=== PATIENT | female | born 1955 | race Caucasian/White ===

== ENCOUNTER 2017-08-18 10:54 | Observation (INO) | payer OTHER ==
[~2017-08-18] VITALS: Ht 170.2 cm; Wt 57.5 kg
[2017-08-18] VITALS (7 sets, daily range): BP systolic 127–168; BP diastolic 33–99; PULSE 64–78; RESP 16–21; TEMP 98.4–98.6; O2SAT 94–100
--- NOTE | 2017-08-18 11:20 | PD ---
HPI Chief Complaint: Chest Pain Time Seen by Provider: 11:17 Travel History International Travel<30 days: No Contact w/Intl Traveler<30days: No Traveled to known affect area: No History of Present Illness HPI 61-year-old female patient with history of smoking, hypertension, high cholesterol, COPD, presents to the ER today for several days history of substernal chest pains with radiation to the right shoulder, worse with movement of the arms, currently a constant 8 out of 10. She has been coughing but is nonproductive. She denies any shortness of breath. She denies other symptoms. Modifying Factors: None Associated Signs & Symptoms: Coughing, chest pain Risk Factors: COPD history PFSH Past Medical History High Cholesterol: Yes COPD: Yes Gastrointestinal Disorders: Yes (CHRONIC CONSTIPATION) Hypertension: Yes ?: Not Tubal Ligation: Yes Social History Alcohol Use: No Tobacco Use: Yes Substance Use: No Allergies-Medications (Allergen,Severity, Reaction): Coded Allergies: No Known Allergies (Unverified , 08/18/17) Reported Meds & Prescriptions Reported Meds & Active Scripts Active Reported Triamterene-Hydrochlorothiazide 37.5-25 Mg Cap 1 Cap PO DAILY Propranolol (Propranolol HCl) 20 Mg Tab 20 Mg PO Q12HR Lovastatin 40 Mg Tab 40 Mg PO DAILY Lisinopril 10 Mg Tab 10 Mg PO BID Lactulose Liq (Lactulose) 10 Gm/15 Ml Soln 30 Ml PO BID Aspirin EC (Aspirin) 81 Mg Tabdr 81 Mg PO DAILY Review of Systems Except as stated in HPI: all other systems reviewed are Neg Physical Exam Narrative GENERAL: Well-developed elderly female patient currently in mild distress. Awake and oriented 3. SKIN: Focused skin assessment warm/dry. HEAD: Atraumatic. Normocephalic. EYES: Pupils equal and round. No scleral icterus. No injection or drainage. ENT: No nasal bleeding or discharge. Mucous membranes pink and moist. NECK: Trachea midline. No JVD. Supple. CARDIOVASCULAR: Regular rate and rhythm. No murmur appreciated. RESPIRATORY: No accessory muscle use. Decreased throughout. Breath sounds equal bilaterally. GASTROINTESTINAL: Abdomen soft, non-tender, nondistended. Hepatic and splenic margins not palpable. MUSCULOSKELETAL: No obvious deformities. No clubbing. No cyanosis. No edema. NEUROLOGICAL: Awake and alert. No obvious cranial nerve deficits. Motor grossly within normal limits. Normal speech. PSYCHIATRIC: Appropriate mood and affect; insight and judgment normal. Data Data Last Documented VS Vital Signs Date Time Temp Pulse Resp B/P (MAP) Pulse Ox O2 Delivery O2 Flow Rate FiO2 08/18/17 11:37 149/80 (103) 08/18/17 11:09 74 21 100 Room Air 08/18/17 11:02 98.4 Orders Orders Electrocardiogram (08/18/17 11:17) Basic Metabolic Panel (Bmp) (08/18/17 11:17) Ckmb (Isoenzyme) Profile (08/18/17 11:17) Complete Blood Count With Diff (08/18/17 11:17) Magnesium (Mg) (08/18/17 11:17) Prothrombin Time / Inr (Pt) (08/18/17 11:17) Act Partial Throm Time (Ptt) (08/18/17 11:17) Troponin I (08/18/17 11:17) Ecg Monitoring (08/18/17 11:17) Bilateral Bp Monitoring (08/18/17 11:17) Iv Access Insert/Monitor (08/18/17 11:17) Oximetry (08/18/17 11:17) Oxygen Administration (08/18/17 11:17) Sodium Chloride 0.9% Flush (Ns Flush) (08/18/17 11:30) Chest, Pa & Lat (08/18/17 11:17) Albuterol-Ipratropium Neb (Duoneb Neb) (08/18/17 11:30) Labs Laboratory Tests Test 08/18/17 11:19 White Blood Count 9.3 TH/MM3 Red Blood Count 4.55 MIL/MM3 Hemoglobin 14.6 GM/DL Hematocrit 42.2 % Mean Corpuscular Volume 92.7 FL Mean Corpuscular Hemoglobin 32.1 PG Mean Corpuscular Hemoglobin Concent 34.6 % Red Cell Distribution Width 15.2 % Platelet Count 506 TH/MM3 Mean Platelet Volume 8.7 FL Neutrophils (%) (Auto) 63.2 % Lymphocytes (%) (Auto) 23.7 % Monocytes (%) (Auto) 9.8 % Eosinophils (%) (Auto) 2.1 % Basophils (%) (Auto) 1.2 % Neutrophils # (Auto) 5.9 TH/MM3 Lymphocytes # (Auto) 2.2 TH/MM3 Monocytes # (Auto) 0.9 TH/MM3 Eosinophils # (Auto) 0.2 TH/MM3 Basophils # (Auto) 0.1 TH/MM3 CBC Comment DIFF FINAL Differential Comment Prothrombin Time 10.8 SEC Prothromb Time International Ratio 1.1 RATIO Activated Partial Thromboplast Time 28.0 SEC Blood Urea Nitrogen 8 MG/DL Creatinine 0.66 MG/DL Random Glucose 95 MG/DL Calcium Level 8.9 MG/DL Magnesium Level 2.1 MG/DL Sodium Level 141 MEQ/L Potassium Level 3.7 MEQ/L Chloride Level 107 MEQ/L Carbon Dioxide Level 27.1 MEQ/L Anion Gap 7 MEQ/L Estimat Glomerular Filtration Rate 91 ML/MIN Total Creatine Kinase 76 U/L Troponin I LESS THAN 0.02 NG/ML MDM Medical Decision Making Medical Screen Exam Complete: Yes Emergency Medical Condition: Yes Medical Record Reviewed: Yes Interpretation(s) EKG shows NSR, no ST elevation or depression, and no arrhythmias. No significant T-wave inversions. Laboratory Tests Test 08/18/17 11:19 Platelet Count 506 TH/MM3 (150-450) Monocytes (%) (Auto) 9.8 % (0.0-8.0) Troponin I LESS THAN 0.02 NG/ML Last 24 hours Impressions Chest X-Ray 08/18/17 1117 Signed Impressions: Service Date/Time: Friday, August 18, 2017 11:48 - CONCLUSION: No acute cardiopulmonary disease identified. Julius Aguayo MD Differential Diagnosis Bronchitis versus pneumonia versus costochondritis versus ACS Narrative Course Chest x-ray was unremarkable. Lab work was otherwise unremarkable. Cardiac enzymes are negative. EKG did not show ST changes or dysrhythmias. However, considering her chest pain, my plan would be to admit her for further evaluation and a chest pain center. Diagnosis Primary Impression: Atypical chest pain Admitting Information Admitting Physician Requests: Admit Sandra Laura MD August 18, 2017 11:20
[2017-08-18] MEDS ORDERED: LOVA40TA PO (11:28)
[2017-08-18] MEDS ORDERED: ASPI81TA23 PO (11:28)
[2017-08-18] MEDS ORDERED: LACT10SO PO (11:28)
[2017-08-18] MEDS ORDERED: LISI10TA3 PO (11:28)
[2017-08-18] MEDS ORDERED: TRIA37.53 PO (11:28)
[2017-08-18] MEDS ORDERED: PROP20TA3 PO (11:28)
[2017-08-18] MEDS ORDERED: SODIUM CHLORIDE 0.9% FLUSH 10 ML FLUSH IVF PRN (11:30)
[2017-08-18] MEDS ORDERED: RESP: ALBUTEROL 2.5 MG/IPRATROPIUM 0.5 MG NEB (SCH) INH ONE (11:30)
[2017-08-18 11:31] LABS: AUTOMATED NEUTROPHIL # 5.9 TH/MM3 (1.8-7.7); BASOPHIL # 0.1 TH/MM3 (0-0.2); BASOPHIL % 1.2 % (0.0-2.0); EOSINOPHIL # 0.2 TH/MM3 (0-0.4); EOSINOPHIL % 2.1 % (0.0-4.0); HEMATOCRIT 42.2 % (35.0-46.0); HEMOGLOBIN 14.6 GM/DL (11.6-15.3); LYMPH % 23.7 % (9.0-44.0); LYMPHOCYTE # 2.2 TH/MM3 (1.0-4.8); MEAN CELL VOLUME 92.7 FL (80.0-100.0); MEAN CORPUSCULAR HEMOGLOBIN 32.1 PG (27.0-34.0); MEAN CORPUSCULAR HGB CONC 34.6 % (32.0-36.0); MEAN PLATELET VOLUME 8.7 FL (7.0-11.0); MONO % 9.8 % (0.0-8.0); MONOCYTE # 0.9 TH/MM3 (0-0.9); NEUT % 63.2 % (16.0-70.0); PLATELET COUNT 506 TH/MM3 (150-450); RED BLOOD COUNT 4.55 MIL/MM3 (4.00-5.30); RED CELL DISTRIBUTION WIDTH 15.2 % (11.6-17.2); WHITE BLOOD COUNT 9.3 TH/MM3 (4.0-11.0)
[2017-08-18 11:42] LABS: INTERNATIONAL NORMALIZED RATIO 1.1 RATIO; PROTHROMBIN TIME - PATIENT 10.8 SEC (9.8-11.6)
[2017-08-18 11:51] LABS: BICARBONATE 27.1 MEQ/L (21.0-32.0); BLOOD UREA NITROGEN 8 MG/DL (7-18); CALCIUM 8.9 MG/DL (8.5-10.1); CHLORIDE 107 MEQ/L (98-107); CREATININE 0.66 MG/DL (0.50-1.00); GLOMERULAR FILTRATION RATE 91 ML/MIN (>89); GLUCOSE,RANDOM 95 MG/DL (74-106); MAGNESIUM 2.1 MG/DL (1.5-2.5); SODIUM (NA) 141 MEQ/L (136-145)
[2017-08-18 11:52] LABS: TROPONIN I LESS THAN 0.02 NG/ML (0.02-0.05)
--- NOTE | 2017-08-18 12:39 | RADRPT ---
EXAM DATE/TIME: 08/18/2017 11:48 [facility] COMPARISON: No previous studies available for comparison. INDICATIONS : Chest pain MEDICAL HISTORY : None. SURGICAL HISTORY : None. ENCOUNTER: Initial ACUITY: 1 day PAIN SCORE: 5/10 LOCATION: chest FINDINGS: PA and lateral views of the chest. The lungs are clear. Cardiomediastinal silhouette within normal li mits. No evidence of pleural effusion or pneumothorax. CONCLUSION: No acute cardiopulmonary disease identified. Julius Aguayo MD on August 18, 2017 at 12:36 Board Certified Radiologist. This report was verified electronically.
[2017-08-18] MEDS ORDERED: NITROGLYCERIN 0.4 MG SL 25 TABS/BTL SL PRN (13:30)
[2017-08-18] MEDS ORDERED: ONDANSETRON HCL 4 MG/2 ML VIAL IV PUSH PRN (13:30)
[2017-08-18] MEDS ORDERED: ACETAMINOPHEN 500 MG CPLT PO PRN (13:30)
--- NOTE | 2017-08-18 14:31 | HHI.HP ---
HPI Primary Care Physician [facility] Chief Complaint Chest pain History of Present Illness 61 year old female with history of hypertension, hyperlipidemia, and current smoker presents to ER for further evaluation of chest pain. Initially seen at Urgent Care for what she felt was bronchitis. Instructed to go to ER for further evaluation of chest pain. Onset Saturday. Pain free on Saturday and this morning upon awaking at 0400, as she often does. Drank a cup of coffee and completed a few errands around the house before falling back to sleep. Awoken at 0900, noting chest pain had returned. Location generalized chest, stating discomfort moves from left anterior chest, right anterior chest, and substernal regions. Radiation to right midback. Severity initially 8/10, currently 6/10. Duration constant. Movements and deep breathing makes pain worse. No particular position makes pain better or worse. No known relieving factors. No recent illness last 4-6 weeks. No fever or chills. Slight nonproductive cough. Frequently requires treatment for bronchitis approx every 8-10 months. Review of Systems General: No fatigue,weakness, fever, chills, or recent illness. Has been in her general state of health. HEENT: No CROCKER, no vision changes, no nasal congestion or drainage, no dysphasia CV: Continues to have chest discomfort as stated above. History of palpitations. RESP: "Slight" nonproductive cough. No SOB or wheeze. GI: History of chronic constipation x 10 years. Last bowel movement this morning. No nausea, vomiting, bowel changes, diarrhea, pain, distention, melena , blood in the stool. No change in appetite. Endorses drinking x4 large bottles of water daily and limits her caffeine intake to 1 cup of coffee daily. : No dysuria, urgency, or frequency EXT: No lower leg edema, no paraesthesias MS: No discomfort, injury, trauma. or change in ROM. Worked in her yard all day yesterday, however does not feel as though she overworked herself. NEURO: No change in memory, difficulty with balance, LOC, motor/sensory deficits PSYCH: No anxiety or depression SKIN: No rashes, no concerning lesions Past Family Social History Allergies: Coded Allergies: No Known Allergies (Unverified , 08/18/17) Past Medical History Hypertension, hyperlipidemia, chronic constipation, esophageal dilatation, palpitations Past Surgical History None Reported Medications Reported Meds & Active Scripts Active Reported Triamterene-Hydrochlorothiazide 37.5-25 Mg Cap 1 Cap PO DAILY Propranolol (Propranolol HCl) 20 Mg Tab 20 Mg PO Q12HR Lovastatin 40 Mg Tab 40 Mg PO DAILY Lisinopril 10 Mg Tab 10 Mg PO BID Lactulose Liq (Lactulose) 10 Gm/15 Ml Soln 30 Ml PO BID Aspirin EC (Aspirin) 81 Mg Tabdr 81 Mg PO DAILY Active Ordered Medications Current Medications Medications (Trade) Dose Ordered Sig/Eden Route Start Time Stop Time Status Last Admin (NS Flush) 2 ml UNSCH PRN IVF 08/18/17 11:30 (NS Flush) 2 ml BID IV FLUSH 08/18/17 21:00 (Tylenol) 500 mg Q4H PRN PO 08/18/17 13:30 (Zofran Inj) 4 mg Q6H PRN IV PUSH 08/18/17 13:30 (Nitrostat Sl) 0.4 mg Q5M PRN SL 08/18/17 13:30 (Aspirin) 325 mg DAILY PO 08/19/17 09:00 Family History Noncontributory for early onset cardiovascular disease Social History Known hypertension and hyperlipidemia. Borderline diabetic. No known coronary artery disease. Current smoker 1 pack daily. [id number] history, started smoking age 41. Denies any alcohol or illegal drug use. Endorses sedentary lifestyle, works as a financial secretary. . Past cardiac testing No recent stress testing. Seen Dr. Olivas early in the year for palpations. EKG obtained. No stress testing completed. No follow up recommended after visit with Dr. Olivas. Reports being reassured feelings of palpations benign. Physical Exam Vital Signs Vital Signs Date Time Temp Pulse Resp B/P (MAP) Pulse Ox O2 Delivery O2 Flow Rate FiO2 08/18/17 13:21 67 16 148/90 (109) 98 Room Air 08/18/17 12:00 98 21 08/18/17 11:37 149/80 (103) 08/18/17 11:30 64 16 149/80 (103) 100 Room Air 08/18/17 11:09 74 21 152/99 (116) 100 Room Air 08/18/17 11:02 98.4 78 18 168/95 (119) 99 Physical Exam GENERAL: Alert WN, WD, NAD, pleasant, female who appears older than stated age. HEAD: NC, AT NECK: Supple, no masses, trachea midline CV: RRR, without murmur, rub, gallop, no JVD, S1-S2 no S3-S4. No carotid bruits. Left anterior chest pain reproduced with palpation. RESP: Diminished lungs throughout bilateral, no crackles, wheeze, rhonchi, symmetrical chest rise, nonlabored, able to speak in full sentences ABD: Soft, NT, ND, no masses, positive bowel tones EXT: Pulses +2x4, no dependent edema MS: Normal tone x4 extremities, nontender, no obvious deformities, full range of motion NEURO: CN II through CN XII grossly intact, motor strength 5/5 PSYCH: A+O x3, pleasant affect, appropriate speech, mood, insight and judgment SKIN: Normal turgor, normal texture, no lesions, no rashes, brisk cap refill, even hair distribution Laboratory Laboratory Tests Test 08/18/17 11:19 White Blood Count 9.3 Red Blood Count 4.55 Hemoglobin 14.6 Hematocrit 42.2 Mean Corpuscular Volume 92.7 Mean Corpuscular Hemoglobin 32.1 Mean Corpuscular Hemoglobin Concent 34.6 Red Cell Distribution Width 15.2 Platelet Count 506 Mean Platelet Volume 8.7 Neutrophils (%) (Auto) 63.2 Lymphocytes (%) (Auto) 23.7 Monocytes (%) (Auto) 9.8 Eosinophils (%) (Auto) 2.1 Basophils (%) (Auto) 1.2 Neutrophils # (Auto) 5.9 Lymphocytes # (Auto) 2.2 Monocytes # (Auto) 0.9 Eosinophils # (Auto) 0.2 Basophils # (Auto) 0.1 CBC Comment DIFF FINAL Differential Comment Prothrombin Time 10.8 Prothromb Time International Ratio 1.1 Activated Partial Thromboplast Time 28.0 Blood Urea Nitrogen 8 Creatinine 0.66 Random Glucose 95 Calcium Level 8.9 Magnesium Level 2.1 Sodium Level 141 Potassium Level 3.7 Chloride Level 107 Carbon Dioxide Level 27.1 Anion Gap 7 Estimat Glomerular Filtration Rate 91 Total Creatine Kinase 76 Troponin I LESS THAN 0.02 Result Diagram: 08/18/17 1119 08/18/17 1119 Imaging Last 48 hours Impressions Chest X-Ray 08/18/17 1117 Signed Impressions: Service Date/Time: Román, August 18, 2017 11:48 - CONCLUSION: No acute cardiopulmonary disease identified. Julius Aguayo MD Course EKG Normal sinus rhythm, no ST-T segment change Caprini VTE Risk Assessment Caprini VTE Risk Assessment: No/Low Risk (score <= 1) Caprini Risk Assessment Model Point Value = 1 Point Value = 2 Point Value = 3 Point Value = 5 Age 41-60 Minor surgery BMI > 25 kg/m2 Swollen legs Varicose veins or History of unexplained or recurrent spontaneous Oral contraceptives or hormone replacement Sepsis (< 1 month) Serious lung disease, including pneumonia (< 1 month) Abnormal pulmonary function Acute myocardial infarction Congestive heart failure (< 1 month) History of inflammatory bowel disease Medical patient at bed rest Age 61-74 Arthroscopic surgery Major open surgery (> 45 min) Laparoscopic surgery (> 45 min) Malignancy Confined to bed (> 72 hours) Immobilizing plaster cast Central venous access Age >= 75 History of VTE Family history of VTE Factor V Leiden Prothrombin [id number] Lupus anticoagulant Anticardiolipin antibodies Elevated serum homocysteine Heparin-induced thrombocytopenia Other congenital or acquired thrombophilia Stroke (< 1 month) Elective arthroplasty Hip, pelvis, or leg fracture Acute spinal cord injury (< 1 month) Prophylaxis Regimen Total Risk Factor Score Risk Level Prophylaxis Regimen 0-1 Low Early ambulation 2 Moderate Order ONE of the following: *Sequential Compression Device (SCD) *Heparin 5000 units SQ BID 3-4 Higher Order ONE of the following medications: *Heparin 5000 units SQ TID *Enoxaparin/Lovenox 40 mg SQ daily (WT < 150 kg, CrCl > 30 mL/min) *Enoxaparin/Lovenox 30 mg SQ daily (WT < 150 kg, CrCl > 10-29 mL/min) *Enoxaparin/Lovenox 30 mg SQ BID (WT < 150 kg, CrCl > 30 mL/min) AND/OR *Sequential Compression Device (SCD) 5 or more Highest Order ONE of the following medications: *Heparin 5000 units SQ TID (Preferred with Epidurals) *Enoxaparin/Lovenox 40 mg SQ daily (WT < 150 kg, CrCl > 30 mL/min) *Enoxaparin/Lovenox 30 mg SQ daily (WT < 150 kg, CrCl > 10-29 mL/min) *Enoxaparin/Lovenox 30 mg SQ BID (WT < 150 kg, CrCl > 30 mL/min) AND *Sequential Compression Device (SCD) Assessment and Plan Assessment and Plan #1 Atypical chest pain-admitted to chest pain center. Being ACS protocol including 3 sets of EKGs and cardiac enzymes. Will be seen and evaluated by Dr. Ti Reeves. Discomfort suggestive of chest wall musculoskeletal pain. Toradol 30 mg IV x1 dose. #2 History of hypertension-continue lisinopril, propranolol, triamterene/hctz #3 History of hyperlipidemia-continue lovastatin #4 Tobacco use-strongly encouraged and stressed the importance of tobacco cessation. Instructed to quit smoking. Cara Hernandez CHIEF PILOT August 18, 2017 14:31
[2017-08-18] MEDS ORDERED: KETOROLAC TROMETHAMINE 30 MG/ML (IVP) VIAL IV PUSH ONE (15:15)
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
[2017-08-18 15:59] LABS: TROPONIN I LESS THAN 0.02 NG/ML (0.02-0.05)
[2017-08-18] MEDS ORDERED: PRAVASTATIN SOD 40 MG TAB PO SCH (16:30)
[2017-08-18] MEDS ORDERED: LACTULOSE SYRUP 20 GM/30 ML CUP PO SCH ×3 (17:00→21:00)
[2017-08-18] MEDS ORDERED: LISINOPRIL 10 MG TAB PO SCH ×3 (17:00→21:00)
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
[2017-08-18] MEDS ORDERED: PROPRANOLOL HCL 20 MG TAB PO SCH ×2 (18:00→21:00)
[2017-08-18 19:19] LABS: TROPONIN I LESS THAN 0.02 NG/ML (0.02-0.05)
[2017-08-18] MEDS ORDERED: SODIUM CHLORIDE 0.9% FLUSH 10 ML FLUSH IV FLUSH SCH (21:00)
[2017-08-19] MEDS ORDERED: ASPIRIN 325 MG TAB PO SCH (09:00)
--- NOTE | 2017-08-19 16:17 | EKG ---
Date Performed: 08/18/2017 Time Performed: 14:53:41 PTAGE: 61 years EKG: Sinus rhythm POSSIBLE RIGHT VENTRICULAR CONDUCTION DELAY BORDERLINE ECG PREVIOUS TRACING : 08/18/2017 11.12 Since previous tracing, no significant change noted DOCTOR: Tian Sullivan Interpretating Date/Time 08/19/2017 16:15:10
--- NOTE | 2017-08-19 16:18 | EKG ---
Date Performed: 08/18/2017 Time Performed: 17:45:14 PTAGE: 61 years EKG: SINUS BRADYCARDIA BORDERLINE ECG PREVIOUS TRACING : 08/18/2017 14.53 Since previous tracing, no significant change noted DOCTOR: Tian Sullivan Interpretating Date/Time 08/19/2017 16:16:05
--- NOTE | 2017-08-19 16:22 | EKG ---
Date Performed: 08/18/2017 Time Performed: 11:12:29 PTAGE: 61 years EKG: Sinus rhythm WITH SHORT ND INTERVAL POSSIBLE RIGHT VENTRICULAR CONDUCTION DELAY BORDERLINE ECG INTERPRETATION BAS ED ON A DEFAULT AGE OF 40 YEARS NO PREVIOUS TRACING DOCTOR: Tian Sullivan Interpretating Date/Time 08/19/2017 16:19:40
== END 2017-08-18 22:32 | disposition home or self-care (01) ==
LOC: NEPE 10:54 → NEDA 13:09 → NEPHCDU 15:18
PROVIDERS: ADMIT Internal Medicine Interventional Cardiology; ATTEND Internal Medicine Interventional Cardiology
DX: R07.89 Other chest pain (principal); I10 Essential (primary) hypertension; E78.5 Hyperlipidemia, unspecified; F17.210 Nicotine dependence, cigarettes, uncomplicated; J44.9 Chronic obstructive pulmonary disease, unspecified; K59.09 Other constipation; Z79.899 Other long term (current) drug therapy; R73.03 Prediabetes; R00.1 Bradycardia, unspecified
CPT/HCPCS: 71046; 80048; 82550; 83735; 84484; 85025; 85610; 85730; 93005; 94664; 96374; 96376; 99285; G0378; J1885